=== PATIENT | male | born 1990 | race Caucasian/White ===

== ENCOUNTER 2017-08-16 10:27 | Emergency (ER) ==
[2017-08-16 10:33] VITALS: BP 130/82; TEMP 100.5; BMI 22.6
[2017-08-16] MEDS ORDERED: DECADRON 4 MG/ML SDV IM STA (10:40)
[2017-08-16] MEDS ORDERED: ROCEPHIN IM STA (10:40)
[2017-08-16] MEDS ORDERED: LIDOCAINE HCL 1% SDV SUBCUT STA (10:40)
[2017-08-16] MEDS ORDERED: ZITHROMAX PO STA (10:41)
--- NOTE | 2017-08-16 10:45 | ED.PDOC ---
General ED Provider: Dr. LISA SAMANIEGO Chief Complaint: Sore Throat Stated Complaint: SORE THROAT Time Seen by Physician: 10:30 Mode of Arrival: Walk-In Information Source: Patient Exam Limitations: No limitations Nursing and Triage Documentation Reviewed and Agree: Yes Reviewed sepsis parameters & appropriate labs ordered?: Yes System Inflammatory Response Syndrome: Not Applicable Sepsis Protocol: For patient's 13 years and over: Temp is 96.8 and below OR 101 and greater Pulse >90 BPM Resp >20/minute Acutely Altered Mental Status Are patient's symptoms suggestive of a new infection, such as: -Pneumonia -Skin, Soft Tissue -Endocarditis -UTI -Bone, Joint Infection -Implantable Device -Acute Abdominal Infection -Wound Infection -Meningitis -Blood Stream Catheter Infection -Unknown EENT Complaint Exam - Throat Complaint/Exam Onset/Duration: 1 DAY Symptoms Are: Still present Timimg: Constant Initial Severity: Moderate Current Severity: Moderate Aggravating: Reports: Eating Alleviating: Reports: None Associated Signs and Symptoms: Reports: Dysphagia, Chills, Cough, Nasal congestion. Denies: Fever, Drooling, Foreign body sensation, Wheezing, Hoarseness, Sinus discomfort, Difficulty breathing, Lethargy, Irritability, Decreased activity, Vomiting, Diarrhea, Decreased hearing, Ear drainage Uvula Midline: Yes Felicita-tonsillar Fluctuence: No Scarlatinaform Rash Present: No Stridor Present: No Sinus Tenderness Present: No Tonsillar Hypertrophy Present: No Tonsillar Exudate Present: No Felicita-tonsillar Swelling Present: No Adenopathy Present: No Splenomegaly Present: No Review of Systems - Review Of Systems Constitutional: Reports: Chills, Malaise Eyes: Reports: No symptoms Ears, Nose, Mouth, Throat: Reports: Throat pain Respiratory: Reports: No symptoms Cardiac: Reports: No symptoms GI: Reports: No symptoms : Reports: No symptoms Musculoskeletal: Reports: No symptoms Skin: Reports: No symptoms Neurological: Reports: No symptoms Endocrine: Reports: No symptoms Hematologic/Lymphatic: Reports: No symptoms All Other Systems: Reviewed and Negative Past Medical History - Past Medical History Previously Healthy: Yes Endocrine: Reports: None Cardiovascular: Reports: None Respiratory: Reports: None Hematological: Reports: None Gastrointestinal: Reports: None Genitourinary: Reports: None Neuro/Psych: Reports: None Musculoskeletal: Reports: None Cancer: Reports: None - Surgical History General Surgical History: Reports: None - Family History Family History: Reports: None - Social History Smoking Status: Current every day smoker, Heavy tobacco smoker Hx Substance Use: No Alcohol Screening: None Physical Exam - Physical Exam Appearance: Well-appearing, No pain distress, Well-nourished Eyes: CADE, EOMI, Conjunctiva clear ENT: Erythema, Exudate Respiratory: Airway patent, Breath sounds clear, Breath sounds equal, Respirations nonlabored Cardiovascular: RRR, Pulses normal, No rub, No murmur GI/: Soft, Nontender, No masses, Bowel sounds normal, No Organomegaly Musculoskeletal: Normal strength, ROM intact, No edema, No calf tenderness Skin: Warm, Dry, Normal color Neurological: Sensation intact, Motor intact, Reflexes intact, Cranial nerves intact, Alert, Oriented Psychiatric: Affect appropriate, Mood appropriate Critical Care Note - Critical Care Note Total Time (mins): 0 Course - Course Orders, Labs, Meds: Orders Category Date Time Status MONONUCLOSIS SCREEN Stat LAB 08/16/17 Ordered Azithromycin [Zithromax] MEDS 08/16/17 10:41 Stat 1,000 mg PO ONCE STA Ceftriaxone Sodium [Rocephin] MEDS 08/16/17 10:40 Stat 1 gm IM ONCE STA Dexamethasone 4 mg/ml Inj [Decadron 4 mg/ml Sdv] MEDS 08/16/17 10:40 Stat 8 mg IM ONCE STA Lidocaine HCl/Pf [Lidocaine HCl 1% Sdv] MEDS 08/16/17 10:40 Stat 5 ml SUBCUT ONCE STA Medications Discontinued Medications Generic Name Dose Route Start Last Admin Trade Name Memoq PRN Reason Stop Dose Admin Azithromycin 1,000 mg 08/16/17 10:41 Zithromax PO 08/16/17 10:42 ONCE STA Ceftriaxone Sodium 1 gm 08/16/17 10:40 Rocephin IM 08/16/17 10:41 ONCE STA Dexamethasone Sodium Phosphate 8 mg 08/16/17 10:40 Decadron 4 Mg/Ml Sdv IM 08/16/17 10:41 ONCE STA Lidocaine HCl 5 ml 08/16/17 10:40 Lidocaine Hcl 1% Sdv SUBCUT 08/16/17 10:41 ONCE STA Vital Signs: Temp Pulse Resp BP Pulse Ox 08/16/17 10:28 100.5 F H 137 H 20 130/82 96 Departure - Departure Time of Disposition: 10:44 Disposition: HOME SELF-CARE Discharge Problem: Sore throat symptom Pharyngitis Qualifiers: Pharyngitis/tonsillitis etiology: unspecified etiology Qualified Code(s): J02.9 - Acute pharyngitis, unspecified Instructions: Pharyngitis (ED) Condition: Good Pt referred to PMD for follow-up: Yes Additional Instructions: Please call your Family Physician as soon as possible to schedule a follow-up appointment. Allergies/Adverse Reactions: Allergies No Known Allergies Allergy (Unverified 08/16/17 10:34) Home Medications: Ambulatory Orders 1 [No Reported Medications] 08/16/17
== END 2017-08-16 11:28 | disposition home or self-care (01) ==
LOC: ED 10:27
DX: J02.9 Acute pharyngitis, unspecified (principal); F17.210 Nicotine dependence, cigarettes, uncomplicated
CPT/HCPCS: 36415; 86308; 96372; 99283